=== PATIENT | male | born 1995 | race Caucasian/White ===

== ENCOUNTER 2019-04-03 15:01 | Outpatient (CLI) | payer OTHER ==
--- NOTE | 2019-04-03 16:21 | ULT ---
US Testicular W Doppler History: M 52.89 testicular lump Comparison: None. Findings: Real-time grayscale, color, and spectral analysis of the testicles was performed. The testicular echotexture is normal bilaterally. Adequate vascular flow to both testicles. The right testicle measures 3.2 x 4.8 x 1.9 cm and the left testicle measures 2.6 x 4.4 x 2.6 cm. Small left varicocele. Impression: 1. Normal examination of the testicles. 2. Small left varicocele.
== END 2019-04-03 15:02 | disposition home or self-care (01) ==
LOC: SCSULT 15:01
PROVIDERS: ATTEND Physician Assistant
DX: N50.89 Other specified disorders of the male genital organs (principal); I86.1 Scrotal varices
CPT/HCPCS: 76870; 93976